=== PATIENT | male | born 1995 | race Caucasian/White ===

== ENCOUNTER 2017-02-04 14:09 | Emergency (ER) | payer OTHER ==
[~2017-02-04] VITALS: Ht 170.2 cm; Wt 72.6 kg
[2017-02-04] MEDS ORDERED: SENOKOT-S1 TA1 PO (15:04)
[2017-02-04] MEDS ORDERED: NORCO 5-325 TA1 EACH PO (15:04)
[2017-02-04] MEDS ORDERED: KEFLEX500 MG PO (15:04)
[2017-02-04] MEDS ORDERED: IBUPROFEN 800800 M1 PO (15:04)
[2017-02-04 15:40] VITALS: BP 138/84
== END 2017-02-04 15:48 | disposition home or self-care (01) ==
LOC: ER 14:09
DX: S61.031A Puncture wound without foreign body of right thumb without damage to nail, initial encounter (principal); F10.99 Alcohol use, unspecified with unspecified alcohol-induced disorder; F17.210 Nicotine dependence, cigarettes, uncomplicated; W32.0XXA Accidental handgun discharge, initial encounter; Y93.89 Activity, other specified; Y92.89 Other specified places as the place of occurrence of the external cause; Y99.8 Other external cause status